=== PATIENT | female | born 2000 | race Caucasian/White ===

== ENCOUNTER 2021-08-29 11:36 | Emergency (ER) | payer OTHER ==
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
[2021-08-29 14:10] VITALS: BP 121/76
== END 2021-08-29 14:08 | disposition home or self-care (01) ==
LOC: ED 11:36
DX: O9A.211 Injury, poisoning and certain other consequences of external causes complicating pregnancy, first trimester (principal); Z3A.10 10 weeks gestation of pregnancy; V89.2XXA Person injured in unspecified motor-vehicle accident, traffic, initial encounter; Y93.89 Activity, other specified; Y92.89 Other specified places as the place of occurrence of the external cause; Y99.8 Other external cause status
CPT/HCPCS: 76801; 99283